=== PATIENT | male | born 1990 | race Caucasian/White ===

== ENCOUNTER 2016-08-27 20:01 | Emergency (ER) | payer BC ==
[~2016-08-27] VITALS: Ht 170.2 cm; Wt 81.2 kg
[~2016-08-27 20:01] MED LIST: DILAUDID2 MG PO; FLEXERIL10 MG PO; MOTRIN IB200 MG PO; PERCOCET 5/31 TABLET PO; VITAMIN C1000 MG PO; ZOVIRAX800 M1 PO
[2016-08-27 22:01] LABS: HEMATOCRIT 45.8 % (38.0-50.0); MCH 31.3 PG (29.0-34.0); MCHC 36.5 G/DL (30.0-36.0); MCV 85.9 FL (86-99); MEAN PLAT.VOLUME 10.3 uM^3 (9.0-12.4); PLATELET COUNT 238 K/uL (156-360); RBC DIS.WIDTH-CV 11.5 % (11.8-14.6); RBC DIS.WIDTH-SD 35.4 % (39-53); RED BLOOD COUNT 5.33 M/uL (4.00-5.50); WHITE BLOOD COUNT 6.1 K/uL (4.1-10.2)
[2016-08-27 22:18] LABS: CHLORIDE 102 mEq/L (99-109); POTASSIUM 3.8 mEq/L (3.7-5.4); SODIUM 138 mEq/L (136-147)
[2016-08-27 22:20] LABS: GLUCOSE 90 mg/dL (70-99)
[2016-08-27 22:21] LABS: ANION GAP 10 MEQ/L (2-14)
[2016-08-27 22:24] LABS: GFR ESTIMATE (CALCULATED) > 59 mL/min/; UREA NITROGEN (BUN) 9 mg/dL (9-23)
[2016-08-27 22:33] LABS: ADD MIUA? NO; BILIRUBIN NEGATIVE; BLOOD NEGATIVE; COLOR YELLOW ((YELLOW)); GLUCOSE (STRIP) NEGATIVE; KETONES NEGATIVE; LEUKOCYTES NEGATIVE; NITRITE NEGATIVE; PH, URINE 6.5 (5-8); PROTEIN (STRIP) NEGATIVE; SPECIFIC GRAVITY 1.012 (1.000-1.030); UROBILINOGEN 0.2 MG/DL (0.2-1.0)
[2016-08-27] MEDS ORDERED: ZOFRAN ODT4 MG PO (22:43)
[2016-08-27] MEDS ORDERED: ZITHROMAX250 MG PO (22:43)
[2016-08-27] MEDS ORDERED: HYCODAN SYRUP480 ML PO (22:46)
[2016-08-27 23:03] VITALS: BP 121/75
== END 2016-08-27 23:04 | disposition home or self-care (01) ==
LOC: EME 20:01 → RME 20:01
PROVIDERS: Nurse Practitioner Family
DX: J40 Bronchitis, not specified as acute or chronic (principal)
CPT/HCPCS: 71020; 80048; 81003; 85027; 99281; 99284